=== PATIENT | female | born 1930 | race Caucasian/White ===

== ENCOUNTER 2020-10-08 13:59 | Inpatient (IN) ==
[2020-10-09] MEDS ORDERED: Benzonatate 100 MG CAPSULE PO PRN (06:01)
[2020-10-09] MEDS ORDERED: *HR* Dextrose 50 % in Water (Vial) 50 ML VIAL IVP PRN (06:14)
[2020-10-09] MEDS ORDERED: D5% in Water 1,000 ML IVC PRN (06:14)
[2020-10-09] MEDS ORDERED: Dextrose Gel 15 GM/37.5 ML TUBE PO PRN ×2 (06:14)
[2020-10-09] MEDS: Ipratropium 1 PUFF INHALER IH SCH ×5 (08:24→23:54)
[2020-10-09] MEDS ORDERED: *HR* Warfarin 2 MG TABLET PO SCH (09:00)
[2020-10-09] MEDS ORDERED: Dexamethasone 4 MG/ML VIAL PO SCH (09:00)
[2020-10-09] MEDS: hydrALAZINE 25 MG TABLET PO SCH ×3 (10:07→21:50)
[2020-10-09] MEDS: Cholecalciferol (D-3) 1,000 UNIT (25MCG) TABLET PO SCH (10:07)
[2020-10-09] MEDS: Isosorbide MONOnitrate (24 HR) 30 MG TAB.ER.24H PO SCH (10:07)
[2020-10-09] MEDS: Aspirin 81 MG TAB.CHEW PO SCH (10:07)
[2020-10-09] MEDS: amLODIPine 5 MG TABLET PO SCH (10:07)
[2020-10-09] MEDS: Calcium Acetate 667 MG CAPSULE PO SCH ×3 (10:07→17:31)
[2020-10-09] MEDS: *HR* GlipiZIDE XL (24 HR) 2.5 MG TABLET PO SCH (10:08)
[2020-10-09] MEDS: Metoprolol XL (24 HR) Succ 25 MG TAB.ER.24H PO SCH ×2 (10:08→21:51)
[2020-10-09] MEDS: dexAMETHasone 4 MG TABLET PO SCH (10:36)
[2020-10-09] MEDS: Insulin LISPRO 300 UNITS/3 ML VIAL SUBQ SCH ×2 (17:31→21:51)
[2020-10-09] MEDS ORDERED: Warfarin perPT PO PRN (18:00)
[2020-10-10] MEDS: traZODone 50 MG TABLET PO PRN ×2 (03:01→21:31)
[2020-10-10] MEDS: hydrOXYzine pamoate 25 MG CAPSULE PO PRN ×2 (03:01→21:32)
[2020-10-10] MEDS: Ipratropium 1 PUFF INHALER IH SCH ×5 (04:54→20:33)
[2020-10-10 07:55] LABS: INR 1.8
[2020-10-10] MEDS: Metoprolol XL (24 HR) Succ 25 MG TAB.ER.24H PO SCH ×2 (09:37→21:31)
[2020-10-10] MEDS: hydrALAZINE 25 MG TABLET PO SCH ×3 (09:38→21:58)
[2020-10-10] MEDS: amLODIPine 5 MG TABLET PO SCH (09:38)
[2020-10-10] MEDS: Aspirin 81 MG TAB.CHEW PO SCH (09:38)
[2020-10-10] MEDS: *HR* GlipiZIDE XL (24 HR) 2.5 MG TABLET PO SCH (09:38)
[2020-10-10] MEDS: Calcium Acetate 667 MG CAPSULE PO SCH ×3 (09:38→16:41)
[2020-10-10] MEDS: Isosorbide MONOnitrate (24 HR) 30 MG TAB.ER.24H PO SCH (09:38)
[2020-10-10] MEDS: Cholecalciferol (D-3) 1,000 UNIT (25MCG) TABLET PO SCH (09:38)
[2020-10-10] MEDS: Insulin LISPRO 300 UNITS/3 ML VIAL SUBQ SCH ×4 (09:39→21:58)
[2020-10-10] MEDS: dexAMETHasone 4 MG TABLET PO SCH (09:42)
[2020-10-10] MEDS ORDERED: *HR* Warfarin 2 MG TABLET PO ONE (18:00)
[2020-10-11] MEDS: Ipratropium 1 PUFF INHALER IH SCH ×6 (00:34→20:39)
[2020-10-11 07:47] LABS: INR 1.6; Prothrombin Time 17.8 Seconds (9.4-12.1)
[2020-10-11] MEDS: Calcium Acetate 667 MG CAPSULE PO SCH ×3 (08:16→17:54)
[2020-10-11] MEDS: hydrALAZINE 25 MG TABLET PO SCH ×3 (08:16→21:07)
[2020-10-11] MEDS: Metoprolol XL (24 HR) Succ 25 MG TAB.ER.24H PO SCH ×2 (08:16→21:07)
[2020-10-11] MEDS: Aspirin 81 MG TAB.CHEW PO SCH (08:16)
[2020-10-11] MEDS: amLODIPine 5 MG TABLET PO SCH (08:16)
[2020-10-11] MEDS: *HR* GlipiZIDE XL (24 HR) 2.5 MG TABLET PO SCH (08:17)
[2020-10-11] MEDS: Cholecalciferol (D-3) 1,000 UNIT (25MCG) TABLET PO SCH (08:17)
[2020-10-11] MEDS: Isosorbide MONOnitrate (24 HR) 30 MG TAB.ER.24H PO SCH (08:17)
[2020-10-11] MEDS: dexAMETHasone 4 MG TABLET PO SCH (08:17)
[2020-10-11] MEDS: Insulin LISPRO 300 UNITS/3 ML VIAL SUBQ SCH ×4 (08:18→21:08)
[2020-10-11] MEDS ORDERED: polyethylene glycoL 3350 17 GM POWD.PACK PO PRN (09:07)
[2020-10-11] MEDS ORDERED: *HR* Warfarin 2 MG TABLET PO ONE (18:00)
[2020-10-11] MEDS ORDERED: Bisacodyl 10 MG RECTAL SUPPOSITORY RC ONE (19:34)
[2020-10-11] MEDS: Famotidine 20 MG TABLET PO SCH (21:08)
[2020-10-12] MEDS: traZODone 50 MG TABLET PO PRN ×2 (00:39→21:14)
[2020-10-12] MEDS: Ipratropium 1 PUFF INHALER IH SCH ×7 (00:41→23:53)
[2020-10-12] MEDS: *HR* LORazepam 0.5 MG TABLET PO PRN ×2 (01:48→21:13)
[2020-10-12] MEDS: Acetaminophen 325 MG TABLET PO PRN (01:51)
[2020-10-12] MEDS: *HR* OxyCODONE Immed Rel 5 MG TABLET PO PRN ×2 (03:45→21:14)
[2020-10-12 06:57] LABS: Basophils # 0.1 K/mcL (0.0-0.2); Basophils % 0.6 %; Eosinophils # 0.2 K/mcL (0.0-0.6); Eosinophils % 1.8 %; Hematocrit 31.1 % (35.3-44.9); Hemoglobin 10.3 g/dL (11.5-15.4); Immature Granulocytes % 3.7 % (0-4); Lymphocytes # 1.3 K/mcL (0.6-4.6); Lymphocytes % 12.4 %; Mean Corpuscular HGB Conc 33.1 g/dL (31.6-35.5); Mean Corpuscular Hemoglobin 30.7 pg (28.0-33.3); Mean Corpuscular Volume 92.6 fL (83.0-100.0); Mean Platelet Volume 10.4 fL (9.4-12.4); Monocytes # 1.3 K/mcL (0.0-1.3); Neutrophils # 7.5 K/mcL (1.6-8.9); Platelet Count 224 K/mcL (140-400); Red Blood Count 3.36 M/mcL (3.82-4.97); Segmented Neutrophils % 69.5 %; White Blood Count 10.7 K/mcL (4.3-11.1)
[2020-10-12 07:20] LABS: INR 1.5; Prothrombin Time 17.2 Seconds (9.4-12.1)
[2020-10-12 08:46] LABS: Alanine Aminotransferase 10 Units/L (7-52); Albumin 3.4 g/dL (3.5-5.7); Albumin/Globulin Ratio 1.4 (1.1-2.2); Alkaline Phosphatase 78 Units/L (34-104); Aspartate Amino Transferase 21 Units/L (13-39); BUN/Creatinine Ratio 11 (6-26); Bilirubin,Total 0.5 mg/dL (0.3-1.0); Blood Urea Nitrogen 32 mg/dL (8-23); Calcium 9.3 mg/dL (8.6-10.3); Carbon Dioxide 30 mEq/L (23-29); Chloride 99 mEq/L (98-107); Globulin 2.5 g/dL (2.4-3.5); Glucose 87 mg/dL (70-105); Magnesium 1.8 mg/dL (1.6-2.6); Osmolality,Calculated 288 (280-300); Potassium 3.6 mEq/L (3.5-5.1); Sodium 136 mEq/L (136-145); Total Protein 5.9 g/dL (6.4-8.9); eGFR For African Americans 19 (> 60); eGFR For Non-African Americans 16 (> 60)
[2020-10-12] MEDS: Insulin LISPRO 300 UNITS/3 ML VIAL SUBQ SCH ×4 (10:11→21:10)
[2020-10-12] MEDS: Metoprolol XL (24 HR) Succ 25 MG TAB.ER.24H PO SCH ×2 (10:13→21:14)
[2020-10-12] MEDS: polyethylene glycoL 3350 17 GM POWD.PACK PO SCH (10:13)
[2020-10-12] MEDS: amLODIPine 5 MG TABLET PO SCH (10:14)
[2020-10-12] MEDS: hydrALAZINE 25 MG TABLET PO SCH ×3 (10:14→21:13)
[2020-10-12] MEDS: *HR* GlipiZIDE XL (24 HR) 2.5 MG TABLET PO SCH (10:14)
[2020-10-12] MEDS: Aspirin 81 MG TAB.CHEW PO SCH (10:14)
[2020-10-12] MEDS: Cholecalciferol (D-3) 1,000 UNIT (25MCG) TABLET PO SCH (10:14)
[2020-10-12] MEDS: Isosorbide MONOnitrate (24 HR) 60 MG TAB.ER.24H PO SCH (10:18)
[2020-10-12] MEDS: Calcium Acetate 667 MG CAPSULE PO SCH (11:36)
[2020-10-12] MEDS: Isosorbide MONOnitrate (24 HR) 30 MG TAB.ER.24H PO SCH (11:36)
[2020-10-12] MEDS ORDERED: *HR* Warfarin 2 MG TABLET PO ONE (18:00)
[2020-10-13] MEDS: Ipratropium 1 PUFF INHALER IH SCH ×5 (04:44→19:48)
[2020-10-13 07:26] LABS: INR 1.8; Prothrombin Time 20.7 Seconds (9.4-12.1)
[2020-10-13] MEDS ORDERED: Isosorbide MONOnitrate (24 HR) 60 MG TAB.ER.24H PO SCH (09:00)
[2020-10-13] MEDS: Metoprolol XL (24 HR) Succ 25 MG TAB.ER.24H PO SCH ×2 (09:18→20:33)
[2020-10-13] MEDS: Insulin LISPRO 300 UNITS/3 ML VIAL SUBQ SCH ×4 (09:18→20:15)
[2020-10-13] MEDS: Isosorbide MONOnitrate (24 HR) 60 MG TAB.ER.24H PO SCH (09:19)
[2020-10-13] MEDS: hydrALAZINE 25 MG TABLET PO SCH ×3 (09:19→20:32)
[2020-10-13] MEDS: *HR* GlipiZIDE XL (24 HR) 2.5 MG TABLET PO SCH (09:19)
[2020-10-13] MEDS: Cholecalciferol (D-3) 1,000 UNIT (25MCG) TABLET PO SCH (09:19)
[2020-10-13] MEDS: Aspirin 81 MG TAB.CHEW PO SCH (09:19)
[2020-10-13] MEDS: polyethylene glycoL 3350 17 GM POWD.PACK PO SCH (09:20)
[2020-10-13 11:23] LABS: Phosphorous < 1.0 mg/dL (2.7-4.5)
[2020-10-13] MEDS: amLODIPine 5 MG TABLET PO SCH (12:26)
[2020-10-13] MEDS ORDERED: *HR* Warfarin 2 MG TABLET PO ONE (18:00)
[2020-10-13] MEDS: *HR* OxyCODONE Immed Rel 5 MG TABLET PO PRN (19:41)
[2020-10-13] MEDS: *HR* LORazepam 0.5 MG TABLET PO PRN (19:41)
[2020-10-13] MEDS: traZODone 50 MG TABLET PO PRN (20:33)
[2020-10-13] MEDS: Famotidine 20 MG TABLET PO SCH (20:36)
[2020-10-14] MEDS: hydrOXYzine pamoate 25 MG CAPSULE PO PRN (00:21)
[2020-10-14] MEDS: Ipratropium 1 PUFF INHALER IH SCH ×3 (00:53→07:48)
[2020-10-14 05:35] LABS: Hematocrit 29.2 % (35.3-44.9); Hemoglobin 9.7 g/dL (11.5-15.4); Mean Corpuscular HGB Conc 33.2 g/dL (31.6-35.5); Mean Corpuscular Hemoglobin 31.1 pg (28.0-33.3); Mean Corpuscular Volume 93.6 fL (83.0-100.0); Mean Platelet Volume 10.7 fL (9.4-12.4); Platelet Count 210 K/mcL (140-400); Red Blood Count 3.12 M/mcL (3.82-4.97); Red Cell Distribution Width 16.1 % (11.5-14.5); White Blood Count 10.5 K/mcL (4.3-11.1)
[2020-10-14 05:49] LABS: INR 1.9; Prothrombin Time 21.7 Seconds (9.4-12.1)
[2020-10-14 05:54] LABS: Calcium 8.7 mg/dL (8.6-10.3); Magnesium 1.6 mg/dL (1.6-2.6); Phosphorous 1.4 mg/dL (2.7-4.5); Potassium 3.7 mEq/L (3.5-5.1)
[2020-10-14] MEDS: Cholecalciferol (D-3) 1,000 UNIT (25MCG) TABLET PO SCH (08:22)
[2020-10-14] MEDS: amLODIPine 5 MG TABLET PO SCH (08:22)
[2020-10-14] MEDS: hydrALAZINE 25 MG TABLET PO SCH ×3 (08:22→20:30)
[2020-10-14] MEDS: polyethylene glycoL 3350 17 GM POWD.PACK PO SCH (08:22)
[2020-10-14] MEDS: Aspirin 81 MG TAB.CHEW PO SCH (08:23)
[2020-10-14] MEDS: Metoprolol XL (24 HR) Succ 25 MG TAB.ER.24H PO SCH ×2 (08:23→20:30)
[2020-10-14] MEDS: Isosorbide MONOnitrate (24 HR) 60 MG TAB.ER.24H PO SCH (08:23)
[2020-10-14] MEDS: *HR* GlipiZIDE XL (24 HR) 2.5 MG TABLET PO SCH (08:27)
[2020-10-14] MEDS ORDERED: Ipratropium 1 PUFF INHALER IH PRN (09:06)
[2020-10-14] MEDS: Insulin LISPRO 300 UNITS/3 ML VIAL SUBQ SCH ×4 (09:24→20:36)
[2020-10-14] MEDS: *HR* OxyCODONE Immed Rel 5 MG TABLET PO PRN ×2 (12:31→18:20)
[2020-10-14] MEDS ORDERED: *HR* Warfarin 2 MG TABLET PO ONE (18:00)
[2020-10-15 06:50] LABS: INR 1.6; Prothrombin Time 18.6 Seconds (9.4-12.1)
[2020-10-15] MEDS: Insulin LISPRO 300 UNITS/3 ML VIAL SUBQ SCH ×5 (07:57→20:08)
[2020-10-15] MEDS: Aspirin 81 MG TAB.CHEW PO SCH (09:20)
[2020-10-15] MEDS: Cholecalciferol (D-3) 1,000 UNIT (25MCG) TABLET PO SCH (09:22)
[2020-10-15] MEDS: polyethylene glycoL 3350 17 GM POWD.PACK PO SCH (09:23)
[2020-10-15] MEDS: amLODIPine 5 MG TABLET PO SCH (09:24)
[2020-10-15] MEDS: *HR* GlipiZIDE XL (24 HR) 2.5 MG TABLET PO SCH (09:24)
[2020-10-15] MEDS: hydrALAZINE 25 MG TABLET PO SCH ×3 (09:24→20:11)
[2020-10-15] MEDS: Isosorbide MONOnitrate (24 HR) 60 MG TAB.ER.24H PO SCH (09:24)
[2020-10-15] MEDS: Metoprolol XL (24 HR) Succ 25 MG TAB.ER.24H PO SCH ×2 (09:25→18:25)
[2020-10-15] MEDS ORDERED: *HR* Warfarin 5 MG TABLET PO ONE (18:00)
[2020-10-15] MEDS: *HR* OxyCODONE Immed Rel 5 MG TABLET PO PRN (18:37)
[2020-10-15] MEDS: hydrOXYzine pamoate 25 MG CAPSULE PO PRN (20:11)
[2020-10-15] MEDS: traZODone 50 MG TABLET PO PRN (20:12)
[2020-10-15] MEDS: Famotidine 20 MG TABLET PO SCH (20:15)
[2020-10-15] MEDS: *HR* LORazepam 0.5 MG TABLET PO PRN (22:46)
[2020-10-16] MEDS ORDERED: Methyl Salicylate/Menthol 57 APPL/57 GM TUBE TP PRN (00:21)
[2020-10-16] MEDS: Acetaminophen 325 MG TABLET PO PRN ×2 (00:44→07:54)
[2020-10-16] MEDS ORDERED: Trolamine Salicylate/Aloe Vera 85 APPL/85 GM TUBE TP ONE (00:45)
[2020-10-16] MEDS: Insulin LISPRO 300 UNITS/3 ML VIAL SUBQ SCH ×4 (07:53→19:58)
[2020-10-16] MEDS: hydrALAZINE 25 MG TABLET PO SCH ×3 (07:53→19:58)
[2020-10-16] MEDS: Isosorbide MONOnitrate (24 HR) 60 MG TAB.ER.24H PO SCH (07:54)
[2020-10-16] MEDS: Metoprolol XL (24 HR) Succ 25 MG TAB.ER.24H PO SCH ×2 (07:54→19:58)
[2020-10-16] MEDS: Cholecalciferol (D-3) 1,000 UNIT (25MCG) TABLET PO SCH (07:54)
[2020-10-16] MEDS: Aspirin 81 MG TAB.CHEW PO SCH (07:54)
[2020-10-16] MEDS: *HR* GlipiZIDE XL (24 HR) 2.5 MG TABLET PO SCH (07:55)
[2020-10-16] MEDS: amLODIPine 5 MG TABLET PO SCH (07:55)
[2020-10-16] MEDS: polyethylene glycoL 3350 17 GM POWD.PACK PO SCH (07:55)
[2020-10-16 08:37] LABS: Hematocrit 28.8 % (35.3-44.9); Hemoglobin 9.4 g/dL (11.5-15.4); Mean Corpuscular HGB Conc 32.6 g/dL (31.6-35.5); Mean Corpuscular Hemoglobin 30.5 pg (28.0-33.3); Mean Corpuscular Volume 93.5 fL (83.0-100.0); Mean Platelet Volume 10.4 fL (9.4-12.4); Platelet Count 180 K/mcL (140-400); Red Blood Count 3.08 M/mcL (3.82-4.97); Red Cell Distribution Width 15.9 % (11.5-14.5); White Blood Count 10.7 K/mcL (4.3-11.1)
[2020-10-16 08:43] LABS: INR 2.2; Prothrombin Time 24.4 Seconds (9.4-12.1)
[2020-10-16 08:54] LABS: Calcium 8.8 mg/dL (8.6-10.3); Magnesium 1.7 mg/dL (1.6-2.6); Potassium 3.5 mEq/L (3.5-5.1)
[2020-10-16] MEDS ORDERED: *HR* Warfarin 2 MG TABLET PO ONE (18:00)
[2020-10-16] MEDS: traZODone 50 MG TABLET PO PRN (20:00)
[2020-10-16] MEDS: *HR* LORazepam 0.5 MG TABLET PO PRN (20:00)
[2020-10-16] MEDS: hydrOXYzine pamoate 25 MG CAPSULE PO PRN (23:10)
[2020-10-17] MEDS: *HR* OxyCODONE Immed Rel 5 MG TABLET PO PRN ×2 (03:03→20:25)
[2020-10-17] MEDS: Insulin LISPRO 300 UNITS/3 ML VIAL SUBQ SCH ×4 (08:08→19:52)
[2020-10-17] MEDS: hydrALAZINE 25 MG TABLET PO SCH ×3 (08:08→20:25)
[2020-10-17] MEDS: Aspirin 81 MG TAB.CHEW PO SCH (08:09)
[2020-10-17] MEDS: *HR* GlipiZIDE XL (24 HR) 2.5 MG TABLET PO SCH (08:09)
[2020-10-17] MEDS: Isosorbide MONOnitrate (24 HR) 60 MG TAB.ER.24H PO SCH (08:09)
[2020-10-17] MEDS: Cholecalciferol (D-3) 1,000 UNIT (25MCG) TABLET PO SCH (08:09)
[2020-10-17] MEDS: polyethylene glycoL 3350 17 GM POWD.PACK PO SCH (08:09)
[2020-10-17] MEDS: Metoprolol XL (24 HR) Succ 25 MG TAB.ER.24H PO SCH ×2 (08:09→20:26)
[2020-10-17] MEDS: amLODIPine 5 MG TABLET PO SCH (08:09)
[2020-10-17 09:27] LABS: INR 2.3; Prothrombin Time 25.8 Seconds (9.4-12.1)
[2020-10-17] MEDS ORDERED: *HR* Warfarin 2 MG TABLET PO ONE (18:00)
[2020-10-17] MEDS: traZODone 50 MG TABLET PO PRN (20:26)
[2020-10-17] MEDS: *HR* LORazepam 0.5 MG TABLET PO PRN (20:26)
[2020-10-18] MEDS: Insulin LISPRO 300 UNITS/3 ML VIAL SUBQ SCH ×4 (07:18→20:26)
[2020-10-18 07:29] LABS: INR 2.2; Prothrombin Time 24.9 Seconds (9.4-12.1)
[2020-10-18] MEDS: hydrALAZINE 25 MG TABLET PO SCH ×3 (10:08→20:29)
[2020-10-18] MEDS: Metoprolol XL (24 HR) Succ 25 MG TAB.ER.24H PO SCH ×2 (10:08→20:29)
[2020-10-18] MEDS: Aspirin 81 MG TAB.CHEW PO SCH (10:08)
[2020-10-18] MEDS: Cholecalciferol (D-3) 1,000 UNIT (25MCG) TABLET PO SCH (10:08)
[2020-10-18] MEDS: amLODIPine 5 MG TABLET PO SCH (10:09)
[2020-10-18] MEDS: *HR* GlipiZIDE XL (24 HR) 2.5 MG TABLET PO SCH (10:09)
[2020-10-18] MEDS: polyethylene glycoL 3350 17 GM POWD.PACK PO SCH (10:09)
[2020-10-18] MEDS: Isosorbide MONOnitrate (24 HR) 60 MG TAB.ER.24H PO SCH (10:09)
[2020-10-18] MEDS ORDERED: *HR* Warfarin 2 MG TABLET PO ONE (18:00)
[2020-10-18] MEDS: *HR* LORazepam 0.5 MG TABLET PO PRN (20:28)
[2020-10-18] MEDS: *HR* OxyCODONE Immed Rel 5 MG TABLET PO PRN (20:28)
[2020-10-18] MEDS: traZODone 50 MG TABLET PO PRN (20:28)
[2020-10-18] MEDS: Famotidine 20 MG TABLET PO SCH (20:29)
[2020-10-18] MEDS: hydrOXYzine pamoate 25 MG CAPSULE PO PRN (22:46)
[2020-10-19 07:10] LABS: INR 2.5; Prothrombin Time 28.3 Seconds (9.4-12.1)
[2020-10-19] MEDS: amLODIPine 5 MG TABLET PO SCH (08:01)
[2020-10-19] MEDS: Isosorbide MONOnitrate (24 HR) 60 MG TAB.ER.24H PO SCH (08:01)
[2020-10-19] MEDS: Metoprolol XL (24 HR) Succ 25 MG TAB.ER.24H PO SCH ×2 (08:01→20:46)
[2020-10-19] MEDS: Cholecalciferol (D-3) 1,000 UNIT (25MCG) TABLET PO SCH (08:01)
[2020-10-19] MEDS: Aspirin 81 MG TAB.CHEW PO SCH (08:01)
[2020-10-19] MEDS: *HR* GlipiZIDE XL (24 HR) 2.5 MG TABLET PO SCH (08:01)
[2020-10-19] MEDS: hydrALAZINE 25 MG TABLET PO SCH ×3 (08:01→20:46)
[2020-10-19] MEDS: Insulin LISPRO 300 UNITS/3 ML VIAL SUBQ SCH ×4 (08:02→20:10)
[2020-10-19] MEDS: polyethylene glycoL 3350 17 GM POWD.PACK PO SCH (08:02)
[2020-10-19] MEDS ORDERED: *HR* Warfarin 2 MG TABLET PO ONE (18:00)
[2020-10-19] MEDS: *HR* OxyCODONE Immed Rel 5 MG TABLET PO PRN (20:46)
[2020-10-19] MEDS: traZODone 50 MG TABLET PO PRN (20:46)
[2020-10-20 07:23] LABS: INR 2.6; Prothrombin Time 29.2 Seconds (9.4-12.1)
[2020-10-20] MEDS: amLODIPine 5 MG TABLET PO SCH (09:03)
[2020-10-20] MEDS: hydrALAZINE 25 MG TABLET PO SCH ×3 (09:03→21:27)
[2020-10-20] MEDS: Cholecalciferol (D-3) 1,000 UNIT (25MCG) TABLET PO SCH (09:03)
[2020-10-20] MEDS: Aspirin 81 MG TAB.CHEW PO SCH (09:04)
[2020-10-20] MEDS: *HR* GlipiZIDE XL (24 HR) 2.5 MG TABLET PO SCH (09:04)
[2020-10-20] MEDS: Metoprolol XL (24 HR) Succ 25 MG TAB.ER.24H PO SCH ×2 (09:04→21:27)
[2020-10-20] MEDS: Isosorbide MONOnitrate (24 HR) 60 MG TAB.ER.24H PO SCH (09:04)
[2020-10-20] MEDS: polyethylene glycoL 3350 17 GM POWD.PACK PO SCH (09:04)
[2020-10-20] MEDS: Insulin LISPRO 300 UNITS/3 ML VIAL SUBQ SCH ×4 (09:05→21:30)
[2020-10-20] MEDS ORDERED: *HR* Warfarin 2 MG TABLET PO ONE (18:00)
[2020-10-20] MEDS: *HR* LORazepam 0.5 MG TABLET PO PRN (20:00)
[2020-10-20] MEDS: traZODone 50 MG TABLET PO PRN (21:27)
[2020-10-20] MEDS: Famotidine 20 MG TABLET PO SCH (21:33)
[2020-10-20] MEDS: hydrOXYzine pamoate 25 MG CAPSULE PO PRN ×2 (22:56)
[2020-10-21] MEDS: *HR* OxyCODONE Immed Rel 5 MG TABLET PO PRN (03:27)
[2020-10-21 06:21] LABS: INR 2.2; Prothrombin Time 25.2 Seconds (9.4-12.1)
[2020-10-21] MEDS: Insulin LISPRO 300 UNITS/3 ML VIAL SUBQ SCH (07:39)
[2020-10-21 07:49] VITALS: BP 158/70
[2020-10-21] MEDS: hydrALAZINE 25 MG TABLET PO SCH (09:42)
[2020-10-21] MEDS: Metoprolol XL (24 HR) Succ 25 MG TAB.ER.24H PO SCH (09:42)
[2020-10-21] MEDS: Aspirin 81 MG TAB.CHEW PO SCH (09:42)
[2020-10-21] MEDS: Isosorbide MONOnitrate (24 HR) 60 MG TAB.ER.24H PO SCH (09:42)
[2020-10-21] MEDS: Cholecalciferol (D-3) 1,000 UNIT (25MCG) TABLET PO SCH (09:43)
[2020-10-21] MEDS: amLODIPine 5 MG TABLET PO SCH (09:43)
[2020-10-21] MEDS: *HR* GlipiZIDE XL (24 HR) 2.5 MG TABLET PO SCH (09:43)
[2020-10-21] MEDS: polyethylene glycoL 3350 17 GM POWD.PACK PO SCH (09:43)
[2020-10-21] MEDS ORDERED: *HR* Warfarin 2.5 MG TABLET PO ONE (18:00)
== END 2020-10-21 10:53 | disposition home health service (06) | DRG 177 ==
LOC: INPPIK 10-09 04:40
PROVIDERS: ADMIT Family Medicine; ATTEND Family Medicine

== ENCOUNTER 2021-08-28 07:58 | Inpatient (IN) ==
[2021-08-31] MEDS ORDERED: Ondansetron ODT 4 MG TAB.RAPDIS PO PRN (01:04)
[2021-08-31] MEDS ORDERED: *HR* Warfarin 3 MG TABLET PO SCH (01:15)
[2021-08-31] MEDS ORDERED: D5% in Water 1,000 ML IVC PRN (07:36)
[2021-08-31] MEDS ORDERED: *HR* Dextrose 50 % in Water (Syg) 50 ML SYRINGE IVP PRN (07:36)
[2021-08-31] MEDS ORDERED: Dextrose Gel 15 GM/37.5 ML TUBE PO PRN ×2 (07:36)
[2021-08-31 08:30] LABS: Basophils # 0.1 K/mcL (0.0-0.2); Basophils % 0.7 %; Eosinophils # 0.2 K/mcL (0.0-0.6); Eosinophils % 3.3 %; Hematocrit 30.6 % (35.3-44.9); Hemoglobin 9.5 g/dL (11.5-15.4); Immature Granulocytes % 0.4 % (0-4); Lymphocytes # 1.3 K/mcL (0.6-4.6); Lymphocytes % 17.9 %; Mean Corpuscular Volume 106.3 fL (83.0-100.0); Mean Platelet Volume 10.2 fL (9.4-12.4); Monocytes # 1.1 K/mcL (0.0-1.3); Monocytes % 15.7 %; Neutrophils # 4.5 K/mcL (1.6-8.9); Platelet Count 141 K/mcL (140-400); Red Blood Count 2.88 M/mcL (3.82-4.97); Red Cell Distribution Width 13.2 % (11.5-14.5); White Blood Count 7.3 K/mcL (4.3-11.1)
[2021-08-31 08:49] LABS: INR 2.2
[2021-08-31 08:51] LABS: Calcium 8.7 mg/dL (8.6-10.3); Potassium 4.8 mEq/L (3.5-5.1)
[2021-08-31 08:52] LABS: Activated Partial Thrombo Time 43.5 Seconds (26.0-36.0)
[2021-08-31] MEDS: Furosemide 40 MG TABLET PO SCH (10:31)
[2021-08-31] MEDS: Metoprolol XL (24 HR) Succ 50 MG TAB.ER.24H PO SCH ×3 (10:32→20:06)
[2021-08-31] MEDS: Calcium Acetate 667 MG CAPSULE PO SCH ×3 (10:33→17:48)
[2021-08-31] MEDS: *HR* OxyCODONE Immed Rel 5 MG TABLET PO SCH ×3 (10:34→19:53)
[2021-08-31] MEDS: Renal Vitamin 1 CAP CAPSULE PO SCH (10:35)
[2021-08-31] MEDS: DilTIAZem CD (24hr) 180 MG CAP.ER.24H PO SCH (10:35)
[2021-08-31] MEDS: Insulin LISPRO 300 UNITS/3 ML VIAL SUBQ SCH ×2 (11:03→14:14)
[2021-08-31] MEDS: SODIUM ZIRCONIUM CYCLOSILICATE 5 GM POWD.PACK PO SCH (11:03)
[2021-08-31] MEDS ORDERED: *HR* Warfarin 3 MG TABLET PO ONE (18:00)
[2021-08-31] MEDS ORDERED: Warfarin perPT PO PRN (18:00)
[2021-08-31] MEDS ORDERED: Insulin LISPRO 300 UNITS/3 ML VIAL SUBQ SCH (21:00)
[2021-09-01] MEDS: Metoprolol XL (24 HR) Succ 50 MG TAB.ER.24H PO SCH (08:14)
[2021-09-01] MEDS: Calcium Acetate 667 MG CAPSULE PO SCH ×3 (08:15→17:26)
[2021-09-01] MEDS: Renal Vitamin 1 CAP CAPSULE PO SCH (08:15)
[2021-09-01] MEDS: *HR* OxyCODONE Immed Rel 5 MG TABLET PO SCH ×3 (08:15→20:13)
[2021-09-01] MEDS: Furosemide 40 MG TABLET PO SCH (08:15)
[2021-09-01] MEDS: DilTIAZem CD (24hr) 180 MG CAP.ER.24H PO SCH (08:15)
[2021-09-01] MEDS: SODIUM ZIRCONIUM CYCLOSILICATE 5 GM POWD.PACK PO SCH (08:15)
[2021-09-01 08:53] LABS: INR 2.1; Prothrombin Time 23.7 Seconds (9.4-12.1)
[2021-09-01] MEDS ORDERED: *HR* Warfarin 3 MG TABLET PO ONE (18:00)
[2021-09-02] MEDS ORDERED: *HR* Warfarin 3 MG TABLET PO SCH (01:04)
[2021-09-02 07:45] LABS: INR 2.1; Prothrombin Time 23.1 Seconds (9.4-12.1)
[2021-09-02] MEDS: Metoprolol XL (24 HR) Succ 50 MG TAB.ER.24H PO SCH ×2 (08:49→20:22)
[2021-09-02] MEDS: Calcium Acetate 667 MG CAPSULE PO SCH ×3 (08:51→16:59)
[2021-09-02] MEDS: DilTIAZem CD (24hr) 180 MG CAP.ER.24H PO SCH ×2 (08:53→14:36)
[2021-09-02] MEDS: Renal Vitamin 1 CAP CAPSULE PO SCH (08:53)
[2021-09-02] MEDS: *HR* OxyCODONE Immed Rel 5 MG TABLET PO SCH ×3 (08:53→20:22)
[2021-09-02] MEDS: SODIUM ZIRCONIUM CYCLOSILICATE 5 GM POWD.PACK PO SCH (08:54)
[2021-09-02] MEDS: Furosemide 40 MG TABLET PO SCH (14:36)
[2021-09-02] MEDS ORDERED: *HR* Warfarin 3 MG TABLET PO ONE (18:00)
[2021-09-02] MEDS: ALPRAZolam 0.25 MG TABLET PO PRN (20:22)
[2021-09-03 07:27] LABS: INR 1.9; Prothrombin Time 21.6 Seconds (9.4-12.1)
[2021-09-03] MEDS: Renal Vitamin 1 CAP CAPSULE PO SCH (10:08)
[2021-09-03] MEDS: Metoprolol XL (24 HR) Succ 50 MG TAB.ER.24H PO SCH ×2 (10:09→19:40)
[2021-09-03] MEDS: Calcium Acetate 667 MG CAPSULE PO SCH ×3 (10:09→16:34)
[2021-09-03] MEDS: *HR* OxyCODONE Immed Rel 5 MG TABLET PO SCH ×3 (10:10→19:39)
[2021-09-03] MEDS: SODIUM ZIRCONIUM CYCLOSILICATE 5 GM POWD.PACK PO SCH (10:11)
[2021-09-03] MEDS: DilTIAZem CD (24hr) 180 MG CAP.ER.24H PO SCH (13:53)
[2021-09-03] MEDS: Furosemide 40 MG TABLET PO SCH (13:54)
[2021-09-03] MEDS ORDERED: *HR* Warfarin 2 MG TABLET PO ONE (18:00)
[2021-09-03] MEDS: ALPRAZolam 0.25 MG TABLET PO PRN (19:40)
[2021-09-04 07:40] LABS: Prothrombin Time 21.8 Seconds (9.4-12.1)
[2021-09-04] MEDS: *HR* OxyCODONE Immed Rel 5 MG TABLET PO SCH ×3 (08:05→19:58)
[2021-09-04] MEDS: Renal Vitamin 1 CAP CAPSULE PO SCH (08:05)
[2021-09-04] MEDS: Calcium Acetate 667 MG CAPSULE PO SCH ×3 (08:05→16:19)
[2021-09-04] MEDS: Metoprolol XL (24 HR) Succ 50 MG TAB.ER.24H PO SCH ×2 (08:05→20:00)
[2021-09-04] MEDS: SODIUM ZIRCONIUM CYCLOSILICATE 5 GM POWD.PACK PO SCH (08:07)
[2021-09-04] MEDS: Furosemide 40 MG TABLET PO SCH (13:58)
[2021-09-04] MEDS: DilTIAZem CD (24hr) 180 MG CAP.ER.24H PO SCH (13:58)
[2021-09-04] MEDS ORDERED: *HR* Warfarin 2 MG TABLET PO ONE (18:00)
[2021-09-05] MEDS: Metoprolol XL (24 HR) Succ 50 MG TAB.ER.24H PO SCH ×2 (08:13→20:33)
[2021-09-05] MEDS: Renal Vitamin 1 CAP CAPSULE PO SCH (08:14)
[2021-09-05] MEDS: *HR* OxyCODONE Immed Rel 5 MG TABLET PO SCH ×3 (08:15→20:32)
[2021-09-05] MEDS: Calcium Acetate 667 MG CAPSULE PO SCH ×3 (08:15→17:11)
[2021-09-05] MEDS: SODIUM ZIRCONIUM CYCLOSILICATE 5 GM POWD.PACK PO SCH (08:22)
[2021-09-05 09:24] LABS: INR 2.2; Prothrombin Time 23.9 Seconds (9.4-12.1)
[2021-09-05] MEDS: Furosemide 40 MG TABLET PO SCH (13:44)
[2021-09-05] MEDS: DilTIAZem CD (24hr) 180 MG CAP.ER.24H PO SCH (13:44)
[2021-09-05] MEDS ORDERED: *HR* Warfarin 3 MG TABLET PO ONE (18:00)
[2021-09-06] MEDS: *HR* OxyCODONE Immed Rel 5 MG TABLET PO SCH ×3 (08:01→19:43)
[2021-09-06] MEDS: Calcium Acetate 667 MG CAPSULE PO SCH ×3 (08:03→17:31)
[2021-09-06] MEDS: Metoprolol XL (24 HR) Succ 50 MG TAB.ER.24H PO SCH ×2 (08:03→19:44)
[2021-09-06] MEDS: Renal Vitamin 1 CAP CAPSULE PO SCH (08:03)
[2021-09-06] MEDS: SODIUM ZIRCONIUM CYCLOSILICATE 5 GM POWD.PACK PO SCH (08:05)
[2021-09-06 08:45] LABS: INR 2.1; Prothrombin Time 23.4 Seconds (9.4-12.1)
[2021-09-06] MEDS: DilTIAZem CD (24hr) 180 MG CAP.ER.24H PO SCH (14:15)
[2021-09-06] MEDS: Furosemide 40 MG TABLET PO SCH (14:15)
[2021-09-06] MEDS ORDERED: Warfarin 4 MG, Warfarin 0.5 MG PO ONE (18:00)
[2021-09-07] MEDS: Calcium Acetate 667 MG CAPSULE PO SCH ×3 (07:40→17:35)
[2021-09-07] MEDS: Renal Vitamin 1 CAP CAPSULE PO SCH (07:40)
[2021-09-07] MEDS: SODIUM ZIRCONIUM CYCLOSILICATE 5 GM POWD.PACK PO SCH (07:41)
[2021-09-07] MEDS: *HR* OxyCODONE Immed Rel 5 MG TABLET PO SCH ×3 (07:41→19:51)
[2021-09-07] MEDS: Metoprolol XL (24 HR) Succ 50 MG TAB.ER.24H PO SCH ×2 (07:45→19:51)
[2021-09-07 10:06] LABS: INR 2.6; Prothrombin Time 28.9 Seconds (9.4-12.1)
[2021-09-07] MEDS: Furosemide 40 MG TABLET PO SCH (14:38)
[2021-09-07] MEDS: DilTIAZem CD (24hr) 180 MG CAP.ER.24H PO SCH (14:38)
[2021-09-07] MEDS ORDERED: *HR* Warfarin 2 MG TABLET PO ONE (18:00)
[2021-09-07] MEDS: ALPRAZolam 0.25 MG TABLET PO PRN (19:51)
[2021-09-08 07:54] LABS: INR 2.8; Prothrombin Time 31.2 Seconds (9.4-12.1)
[2021-09-08] MEDS: *HR* OxyCODONE Immed Rel 5 MG TABLET PO SCH ×3 (10:15→20:18)
[2021-09-08] MEDS: Metoprolol XL (24 HR) Succ 50 MG TAB.ER.24H PO SCH ×2 (10:15→20:18)
[2021-09-08] MEDS: Calcium Acetate 667 MG CAPSULE PO SCH ×3 (10:15→17:27)
[2021-09-08] MEDS: Renal Vitamin 1 CAP CAPSULE PO SCH (10:15)
[2021-09-08] MEDS: DilTIAZem CD (24hr) 180 MG CAP.ER.24H PO SCH (13:01)
[2021-09-08] MEDS: SODIUM ZIRCONIUM CYCLOSILICATE 5 GM POWD.PACK PO SCH (13:01)
[2021-09-08] MEDS: polyethylene glycoL 3350 17 GM POWD.PACK PO SCH (13:03)
[2021-09-08] MEDS: Furosemide 40 MG TABLET PO SCH (13:04)
[2021-09-08] MEDS ORDERED: *HR* Warfarin 0.5 MG TABLET PO ONE (18:00)
[2021-09-08] MEDS: ALPRAZolam 0.25 MG TABLET PO PRN (20:17)
[2021-09-09 07:37] LABS: INR 2.4; Prothrombin Time 26.9 Seconds (9.4-12.1)
[2021-09-09] MEDS: polyethylene glycoL 3350 17 GM POWD.PACK PO SCH (08:00)
[2021-09-09] MEDS: Calcium Acetate 667 MG CAPSULE PO SCH ×3 (08:01→17:49)
[2021-09-09] MEDS: Renal Vitamin 1 CAP CAPSULE PO SCH (08:01)
[2021-09-09] MEDS: Metoprolol XL (24 HR) Succ 50 MG TAB.ER.24H PO SCH ×2 (08:01→20:39)
[2021-09-09] MEDS: *HR* OxyCODONE Immed Rel 5 MG TABLET PO SCH ×3 (08:02→20:41)
[2021-09-09] MEDS: SODIUM ZIRCONIUM CYCLOSILICATE 5 GM POWD.PACK PO SCH (08:03)
[2021-09-09] MEDS: DilTIAZem CD (24hr) 180 MG CAP.ER.24H PO SCH (15:11)
[2021-09-09] MEDS: Furosemide 40 MG TABLET PO SCH (15:12)
[2021-09-09] MEDS ORDERED: *HR* Warfarin 3 MG TABLET PO ONE (18:00)
[2021-09-09] MEDS: ALPRAZolam 0.25 MG TABLET PO PRN (20:42)
[2021-09-10] MEDS: *HR* OxyCODONE Immed Rel 5 MG TABLET PO SCH ×3 (08:08→20:29)
[2021-09-10] MEDS: Renal Vitamin 1 CAP CAPSULE PO SCH (08:08)
[2021-09-10] MEDS: Calcium Acetate 667 MG CAPSULE PO SCH ×3 (08:08→15:53)
[2021-09-10] MEDS: Metoprolol XL (24 HR) Succ 50 MG TAB.ER.24H PO SCH ×2 (08:09→20:29)
[2021-09-10] MEDS: polyethylene glycoL 3350 17 GM POWD.PACK PO SCH (08:09)
[2021-09-10] MEDS: SODIUM ZIRCONIUM CYCLOSILICATE 5 GM POWD.PACK PO SCH (08:09)
[2021-09-10 10:08] LABS: INR 2.1; Prothrombin Time 23.4 Seconds (9.4-12.1)
[2021-09-10] MEDS: Furosemide 40 MG TABLET PO SCH (15:53)
[2021-09-10] MEDS: DilTIAZem CD (24hr) 180 MG CAP.ER.24H PO SCH (15:53)
[2021-09-10] MEDS ORDERED: *HR* Warfarin 3 MG TABLET PO ONE (18:00)
[2021-09-11] MEDS: polyethylene glycoL 3350 17 GM POWD.PACK PO SCH (07:59)
[2021-09-11] MEDS: SODIUM ZIRCONIUM CYCLOSILICATE 5 GM POWD.PACK PO SCH (07:59)
[2021-09-11] MEDS: *HR* OxyCODONE Immed Rel 5 MG TABLET PO SCH ×3 (08:00→20:16)
[2021-09-11] MEDS: Calcium Acetate 667 MG CAPSULE PO SCH ×3 (08:00→17:16)
[2021-09-11] MEDS: Renal Vitamin 1 CAP CAPSULE PO SCH (08:00)
[2021-09-11 09:38] LABS: Prothrombin Time 22.5 Seconds (9.4-12.1)
[2021-09-11] MEDS: Metoprolol XL (24 HR) Succ 50 MG TAB.ER.24H PO SCH ×2 (10:00→20:16)
[2021-09-11] MEDS: Furosemide 40 MG TABLET PO SCH (14:31)
[2021-09-11] MEDS: DilTIAZem CD (24hr) 180 MG CAP.ER.24H PO SCH (14:32)
[2021-09-11] MEDS ORDERED: Sennosides/Docusate Sodium TABLET PO PRN (14:46)
[2021-09-11] MEDS ORDERED: *HR* Warfarin 3 MG TABLET PO ONE (18:00)
[2021-09-11] MEDS: ALPRAZolam 0.25 MG TABLET PO PRN (20:22)
[2021-09-12 07:44] LABS: Hematocrit 29.6 % (35.3-44.9); Hemoglobin 9.2 g/dL (11.5-15.4); Mean Corpuscular HGB Conc 31.1 g/dL (31.6-35.5); Mean Corpuscular Hemoglobin 33.2 pg (28.0-33.3); Mean Corpuscular Volume 106.9 fL (83.0-100.0); Mean Platelet Volume 10.5 fL (9.4-12.4); Platelet Count 204 K/mcL (140-400); Red Blood Count 2.77 M/mcL (3.82-4.97); Red Cell Distribution Width 14.5 % (11.5-14.5); White Blood Count 9.5 K/mcL (4.3-11.1)
[2021-09-12 07:52] LABS: Calcium 9.4 mg/dL (8.6-10.3); Potassium 4.4 mEq/L (3.5-5.1)
[2021-09-12 07:58] LABS: Prothrombin Time 22.7 Seconds (9.4-12.1)
[2021-09-12] MEDS: SODIUM ZIRCONIUM CYCLOSILICATE 5 GM POWD.PACK PO SCH (09:22)
[2021-09-12] MEDS: polyethylene glycoL 3350 17 GM POWD.PACK PO SCH (09:22)
[2021-09-12] MEDS: Calcium Acetate 667 MG CAPSULE PO SCH ×3 (09:23→17:16)
[2021-09-12] MEDS: *HR* OxyCODONE Immed Rel 5 MG TABLET PO SCH ×3 (09:23→21:41)
[2021-09-12] MEDS: Renal Vitamin 1 CAP CAPSULE PO SCH (09:23)
[2021-09-12] MEDS: Metoprolol XL (24 HR) Succ 50 MG TAB.ER.24H PO SCH ×2 (09:23→21:41)
[2021-09-12] MEDS: Furosemide 40 MG TABLET PO SCH (14:58)
[2021-09-12] MEDS: DilTIAZem CD (24hr) 180 MG CAP.ER.24H PO SCH (14:58)
[2021-09-12] MEDS ORDERED: Bisacodyl 10 MG RECTAL SUPPOSITORY RC PRN (15:04)
[2021-09-12] MEDS ORDERED: *HR* Warfarin 3 MG TABLET PO ONE (18:00)
[2021-09-12] MEDS: ALPRAZolam 0.25 MG TABLET PO PRN (21:41)
[2021-09-13 07:30] LABS: INR 2.3; Prothrombin Time 25.1 Seconds (9.4-12.1)
[2021-09-13] MEDS: Renal Vitamin 1 CAP CAPSULE PO SCH (08:43)
[2021-09-13] MEDS: *HR* OxyCODONE Immed Rel 5 MG TABLET PO SCH ×3 (08:44→20:35)
[2021-09-13] MEDS: SODIUM ZIRCONIUM CYCLOSILICATE 5 GM POWD.PACK PO SCH (08:45)
[2021-09-13] MEDS: Calcium Acetate 667 MG CAPSULE PO SCH ×3 (08:45→17:10)
[2021-09-13] MEDS: polyethylene glycoL 3350 17 GM POWD.PACK PO SCH (08:46)
[2021-09-13] MEDS: Metoprolol XL (24 HR) Succ 50 MG TAB.ER.24H PO SCH ×2 (08:46→20:35)
[2021-09-13] MEDS: Furosemide 40 MG TABLET PO SCH (14:16)
[2021-09-13] MEDS: DilTIAZem CD (24hr) 180 MG CAP.ER.24H PO SCH (14:16)
[2021-09-13] MEDS ORDERED: *HR* Warfarin 3 MG TABLET PO ONE (18:00)
[2021-09-13] MEDS: ALPRAZolam 0.25 MG TABLET PO PRN (20:34)
[2021-09-14 07:34] LABS: INR 2.7; Prothrombin Time 30.1 Seconds (9.4-12.1)
[2021-09-14] MEDS: Calcium Acetate 667 MG CAPSULE PO SCH ×3 (10:08→17:19)
[2021-09-14] MEDS: SODIUM ZIRCONIUM CYCLOSILICATE 5 GM POWD.PACK PO SCH (14:01)
[2021-09-14] MEDS: Renal Vitamin 1 CAP CAPSULE PO SCH (14:01)
[2021-09-14] MEDS: Furosemide 40 MG TABLET PO SCH (14:01)
[2021-09-14] MEDS: DilTIAZem CD (24hr) 180 MG CAP.ER.24H PO SCH (14:01)
[2021-09-14] MEDS: Metoprolol XL (24 HR) Succ 50 MG TAB.ER.24H PO SCH ×2 (14:02→20:18)
[2021-09-14] MEDS: polyethylene glycoL 3350 17 GM POWD.PACK PO SCH (14:02)
[2021-09-14] MEDS: *HR* OxyCODONE Immed Rel 5 MG TABLET PO SCH (14:16)
[2021-09-14] MEDS ORDERED: *HR* OxyCODONE Immed Rel 5 MG TABLET PO PRN (14:18)
[2021-09-14] MEDS ORDERED: *HR* Warfarin 1 MG TABLET PO ONE (18:00)
[2021-09-14] MEDS: ALPRAZolam 0.25 MG TABLET PO PRN (22:18)
[2021-09-15 07:38] LABS: INR 2.3; Prothrombin Time 25.2 Seconds (9.4-12.1)
[2021-09-15] MEDS: polyethylene glycoL 3350 17 GM POWD.PACK PO SCH (08:19)
[2021-09-15] MEDS: SODIUM ZIRCONIUM CYCLOSILICATE 5 GM POWD.PACK PO SCH (08:20)
[2021-09-15] MEDS: Renal Vitamin 1 CAP CAPSULE PO SCH (08:22)
[2021-09-15] MEDS: Calcium Acetate 667 MG CAPSULE PO SCH ×3 (08:22→17:15)
[2021-09-15] MEDS: Metoprolol XL (24 HR) Succ 50 MG TAB.ER.24H PO SCH ×2 (08:24→21:12)
[2021-09-15] MEDS: DilTIAZem CD (24hr) 180 MG CAP.ER.24H PO SCH (13:35)
[2021-09-15] MEDS: Furosemide 40 MG TABLET PO SCH (13:35)
[2021-09-15] MEDS ORDERED: *HR* Warfarin 2 MG TABLET PO ONE (18:00)
[2021-09-15] MEDS: ALPRAZolam 0.25 MG TABLET PO PRN (21:12)
[2021-09-16 07:37] VITALS: BP 113/65; PULSE 45; RESP 20; TEMP 97.8; O2SAT 90
[2021-09-16 07:50] LABS: Prothrombin Time 22.7 Seconds (9.4-12.1)
[2021-09-16] MEDS: Calcium Acetate 667 MG CAPSULE PO SCH ×2 (07:56→13:05)
[2021-09-16] MEDS: SODIUM ZIRCONIUM CYCLOSILICATE 5 GM POWD.PACK PO SCH (07:56)
[2021-09-16] MEDS: polyethylene glycoL 3350 17 GM POWD.PACK PO SCH (07:56)
[2021-09-16] MEDS: Renal Vitamin 1 CAP CAPSULE PO SCH (07:56)
[2021-09-16] MEDS: Metoprolol XL (24 HR) Succ 50 MG TAB.ER.24H PO SCH (07:57)
[2021-09-16] MEDS: Furosemide 40 MG TABLET PO SCH (15:56)
[2021-09-16] MEDS: DilTIAZem CD (24hr) 180 MG CAP.ER.24H PO SCH (15:56)
[2021-09-16] MEDS ORDERED: *HR* Warfarin 2.5 MG TABLET PO ONE (18:00)
[2021-09-16 22:12] LABS: Hepatitis B Surface Antigen Nonreactive (Nonreactive)
[2021-09-16 22:40] LABS: Hepatitis C Virus Antibody Nonreactive (Nonreactive)
[2021-09-16 22:41] LABS: Hepatitis B Core IgM Nonreactive (Nonreactive)
[2021-09-16 22:43] LABS: Hepatitis A Antibody IgM Nonreactive (Nonreactive)
== END 2021-09-16 17:13 | disposition home health service (06) | DRG 64 ==
LOC: INPPIK 08-31 00:12
PROVIDERS: ADMIT Internal Medicine; ATTEND Internal Medicine